=== PATIENT | female | born 1995 | race African-American/Black ===

== ENCOUNTER 2017-06-11 01:54 | Emergency (ER) | payer SELFPAY ==
[~2017-06-11] VITALS: Ht 165.1 cm; Wt 115.0 kg
--- NOTE | 2017-06-11 01:58 | ED.ADGEN ---
Adult General Chief Complaint Chief Complaint " I cant stop cough.. I been sick the last couple days.. My kids have colds or flu ..." HPI HPI Patient is a 21 year old female who presents with above hx and complaints subject fever, chills, non-productive cough. Pt. did not get flu vaccination this year. Pt. does smoke. Pt. does not follow with a primary. No recent travel. Her children were recently have URI currently. No hx of immunosuppression, Review of Systems Review of Systems Constitutional: subjective fever or chills [] Eyes: Denies change in visual acuity, redness, or eye pain [] HENT: Hx. of nasal congestion and sore throat [] Respiratory: Hx of non-productive cough o Cardiovascular: No additional information not addressed in HPI [] GI: Denies abdominal pain, nausea, vomiting, bloody stools or diarrhea [] : Denies dysuria or hematuria [] Musculoskeletal: Denies back pain or joint pain [] Integument: Denies rash or skin lesions [] Neurologic: Denies headache, focal weakness or sensory changes [] Endocrine: Denies polyuria or polydipsia [] All other systems were reviewed and found to be within normal limits, except as documented in this note. Family History Family History Non-contributory Current Medications Current Medications See nursing for home meds Allergies Allergies Allergies Coded Allergies Type Severity Reaction Last Updated Verified No Known Drug Allergies 06/11/17 No NKDA Physical Exam Physical Exam Constitutional: , well nourished, moderately acute distress, non-toxic appearance. [] HENT: Normocephalic, atraumatic, bilateral external ears normal, oropharynx moist, injected pharynx, no oral exudates, nose injected turbinates and rhinorrhea. Eyes: PERRLA, EOMI, conjunctiva normal, no discharge. [] Neck: Normal range of motion, no tenderness, supple, no stridor. [] Cardiovascular:Heart rate regular rhythm, no murmur [] Lungs & Thorax: Bilateral breath sounds equal at apex with few scattered wheezes on auscultation [] Abdomen: Bowel sounds normal, soft, no tenderness, no masses, no pulsatile masses. Obese. Skin: Warm, dry, no erythema, no rash. [] Back: No tenderness, no CVA tenderness. [] Extremities: No tenderness, no cyanosis, no clubbing, ROM intact, no edema. [] Neurologic: Alert and oriented X 3, normal motor function, normal sensory function, no focal deficits noted. [] Psychologic: Affect normal, judgement normal, mood normal. [] Current Patient Data Vital Signs Vital Signs Date Time Temp Pulse Resp B/P (MAP) Pulse Ox O2 Delivery O2 Flow Rate FiO2 06/11/17 03:45 98.1 87 18 134/79 (97) 97 Room Air Lab Results Laboratory Tests Test 06/11/17 02:05 Influenza Type A (Rapid) Negative (NEGATIVE) Influenza Type B (Rapid) Negative (NEGATIVE) Group A Streptococcus Rapid Negative (NEGATIVE) EKG EKG [] Radiology/Procedures Radiology/Procedures [] Course & Med Decision Making Course & Med Decision Making Pertinent Labs and Imaging studies reviewed. (See chart for details). Take tylenol and ibuprofen for fever and pain. Benadryl 25 to 50mg four times a day may be helpful for cough , congestion and drainage. [] Final Impression Final Impression 1. Viral syndrome[] Problems: Dragon Disclaimer Dragon Disclaimer This electronic medical record was generated, in whole or in part, using a voice recognition dictation system. SUSIE DAMICO MD Jun 11, 2017 01:58
[2017-06-11 03:18] LABS: INFLUENZA A PATIENT NEGATIVE (NEGATIVE); INFLUENZA B PATIENT NEGATIVE (NEGATIVE)
[2017-06-11] MEDS ORDERED: HYDR-79 PO (03:35)
[2017-06-11 03:45] VITALS: BP 134/79
== END 2017-06-11 07:20 | disposition home or self-care (01) ==
LOC: ER 01:54
DX: B34.9 Viral infection, unspecified (principal)
CPT/HCPCS: 87070; 87804; 87880; 99284